=== PATIENT | male | born 1985 | race Caucasian/White ===

== ENCOUNTER 2018-07-26 16:52 | Outpatient (CLI) | payer OTHER | END 2018-07-26 20:42 | disposition home or self-care (01) | LOC: SLB 16:52 | PROVIDERS: ATTEND Specialist | DX: G12.9 Spinal muscular atrophy, unspecified (principal); Z13.828 Encounter for screening for other musculoskeletal disorder | CPT/HCPCS: 36415 ==

== ENCOUNTER 2018-12-11 09:27 | Outpatient (CLI) | payer OTHER ==
[2018-12-11] MEDS ORDERED: DIATR MEGLU/DIATRIZ SOD 30 ML SOLUTION PO ONE (09:46)
== END 2018-12-11 21:40 | disposition home or self-care (01) ==
LOC: SCT 09:27
DX: K31.89 Other diseases of stomach and duodenum (principal); Z83.79 Family history of other diseases of the digestive system
CPT/HCPCS: 74150; Q9964